=== PATIENT | female | born 1995 | race Caucasian/White ===

== ENCOUNTER 2019-01-18 12:07 | Outpatient (CLI) | payer MEDICAID ==
[~2019-01-18] VITALS: Ht 167.6 cm; Wt 89.5 kg
[2019-01-18 12:16] VITALS: Ht 167.6 cm; Wt 89.5 kg
--- NOTE | 2019-01-18 14:03 | PN ---
Triage Information Date/Time January 18, 2019 Reason for visit: Sent in from clinic for persistent tachycardia Weeks of Gestation 35 weeks and 6 days /Para 2 para 1 Hypertention: none Objective Heart Rate: 130's Heart Rate Comments Reactive Results/Medications Imaging Results Normal biophysical profile. Disposition: Discharge Assessment/Plan Home with follow-up for care LISA CORTES MD Jan 18, 2019 14:03
--- NOTE | 2019-01-18 14:54 | TRIAGE ---
OB Triage Datetime Report Generated by CPN: 01/18/2019 14:53 Datetime: 01/18/2019 13:55 Stage of : OB Triage Maternal Assessment Level of Consciousness: Fully Conscious DTR's/Clonus: DTRs 1+ Headache: Denies Nausea/Vomiting: Denies RUQ Epigastric Pain: Denies Labor Evaluation Monitor Mode: External Resting Tone Olin: Relaxed Heart Rate FHR Baseline Rate: 135 Monitor Mode: External US Variability: Moderate 6-25 bpm Accelerations: 15X15 Decelerations: None Pain Assessment Pain Scale: 0 Pain Presence: None/Denies Pain Type: N/A Pain Goal: 3 Vaginal Exam Membrane Status: Intact Datetime: 01/18/2019 13:42 Stage of : OB Triage Maternal Assessment Level of Consciousness: Fully Conscious DTR's/Clonus: DTRs 1+ Headache: Denies Nausea/Vomiting: Denies RUQ Epigastric Pain: Denies Labor Evaluation Monitor Mode: External Resting Tone Olin: Relaxed Heart Rate FHR Baseline Rate: 135 Monitor Mode: External US Variability: Moderate 6-25 bpm Accelerations: 15X15 Decelerations: None Category: Category I Pain Assessment Pain Scale: 0 Pain Presence: None/Denies Pain Type: N/A Pain Goal: 3 Vaginal Exam Membrane Status: Intact Datetime: 01/18/2019 12:53 Maternal Assessment Level of Consciousness: Fully Conscious DTR's/Clonus: DTRs 1+ Headache: Denies Blurred Vision: No Nausea/Vomiting: Denies RUQ Epigastric Pain: Denies Facial Edema: None Labor Evaluation Monitor Mode: External Resting Tone Olin: Relaxed Heart Rate FHR Baseline Rate: 135 Monitor Mode: External US Variability: Moderate 6-25 bpm Accelerations: 15X15 Decelerations: None Category: Category I Pain Assessment Pain Scale: 0 Pain Presence: None/Denies Pain Type: N/A Pain Goal: 3 Vaginal Exam Membrane Status: Intact Datetime: 01/18/2019 12:19 Assessment Type: Triage Maternal Assessment Level of Consciousness: Fully Conscious DTR's/Clonus: DTRs 2+; No Clonus Headache: Denies Blurred Vision: No Respiratory Effort: Unlabored; Regular Rhythm; Equal Expansion Breath Sounds, Left: Clear and Equal Breath Sounds, Right: Clear and Equal Nausea/Vomiting: Denies RUQ Epigastric Pain: Denies Lower Extremities Edema: None Degree: None Upper Extremities Edema: None Degree: None Facial Edema: None Fall Risk Assessment History of Falling: (0) No Secondary Diagnosis: (0) No Ambulatory Aid: (0) Bedrest/Nurse Assist IV Therapy: (0) No Gait: (0) Normal/Bedrest/Immobile Mental Status: (0) Oriented to Own Ability Fall Score: 0 Fall Risk Score Definition: No Risk: No action required Datetime: 01/18/2019 12:04 Time of Arrival: 01/18/2019 12:04 EGA: 35.4 Arrived By: Ambulatory Arrived From: Home Chief Complaint: PT CAME IN FROM CLINIC FOR TACHY Movement: Present Contractions: Denies/Absent Rupture of Membranes: Denies Vaginal Discharge: Denies Recent Sexual Intercouse: Denies Abdominal Trauma: Not Applicable Additional Patient Complaints: NONE Time Provider Notified: 01/18/2019 12:10 Provider Notified: JOE Initial Plan: [facility]
== END 2019-01-18 13:56 | disposition home or self-care (01) ==
LOC: L-D 12:07 → OBT 12:07
PROVIDERS: ATTEND Obstetrics & Gynecology
DX: O76 Abnormality in fetal heart rate and rhythm complicating labor and delivery (principal); Z3A.35 35 weeks gestation of pregnancy
CPT/HCPCS: 76818; Z7500; G0463

== ENCOUNTER 2019-01-24 23:57 | Inpatient (IN) | payer MEDICAID, OTHER ==
[~2019-01-24] VITALS: Ht 162.6 cm; Wt 91.4 kg
[2019-01-25 00:12] VITALS: BP 121/71; PULSE 77; RESP 16; Ht 162.6 cm; Wt 91.4 kg
[2019-01-25] MEDS ORDERED: PREN-93 PO (00:23)
[2019-01-25] MEDS ORDERED: FER325 PO (00:23)
[2019-01-25] MEDS ORDERED: CALC600T24 PO (00:23)
[2019-01-25] MEDS ORDERED: LACTATED RINGER'S 1,000 ML IV PRN (01:44)
[2019-01-25] MEDS ORDERED: OXYTOCIN 30 UNITS/LR 500 ML IV SCH (02:00)
[2019-01-25] MEDS ORDERED: OXYTOCIN 30 UNITS/LR 500 ML IV PRN (02:00)
[2019-01-25] MEDS ORDERED: MISOPROSTOL 200 MCG TAB PR PRN (02:00)
[2019-01-25] MEDS ORDERED: LIDOCAINE 1% (MPF) 30 ML INJ INJ PRN (02:00)
[2019-01-25] MEDS ORDERED: IBUPROFEN 600 MG TAB PO PRN (02:00)
[2019-01-25] MEDS ORDERED: AMPICILLIN 2 GM/NS (PMX) 100 ML IV ONE (02:00)
[2019-01-25] MEDS ORDERED: CARBOPROST 250 MCG INJ IM PRN (02:00)
[2019-01-25] MEDS ORDERED: BUTORPHANOL 2 MG INJ IV PRN (02:00)
[2019-01-25] MEDS ORDERED: METHYLERGONOVINE 0.2 MG INJ IM PRN (02:00)
[2019-01-25] MEDS: LACTATED RINGER'S 1,000 ML IV SCH ×4 (02:12→23:00)
--- NOTE | 2019-01-25 02:38 | TRIAGE ---
OB Triage Datetime Report Generated by CPN: 01/25/2019 02:38 Datetime: 01/25/2019 02:22 Labor Evaluation Frequency: 2-5 Monitor Mode: External Duration (sec)2399: 60-140 Pattern: Normal: <= 5 Contractions in 10 Minutes Heart Rate FHR Baseline Rate: 145 Monitor Mode: External US Variability: Moderate 6-25 bpm Accelerations: 15X15 Decelerations: None Datetime: 01/25/2019 02:00 Labor Evaluation Frequency: 1.5-6 Monitor Mode: External Duration (sec)2399: 60-150 Pattern: Normal: <= 5 Contractions in 10 Minutes Heart Rate FHR Baseline Rate: 145 Monitor Mode: External US Variability: Moderate 6-25 bpm Accelerations: 15X15 Decelerations: None Category: Category I Datetime: 01/25/2019 01:20 Pain Assessment Comments: pt states she is feeling more uc's Nitrazine: Positive Datetime: 01/25/2019 01:00 Labor Evaluation Frequency: 2-6.5 Monitor Mode: External Duration (sec)2399: 40-150 Pattern: Normal: <= 5 Contractions in 10 Minutes Heart Rate FHR Baseline Rate: 145 Monitor Mode: External US Variability: Moderate 6-25 bpm Accelerations: 15X15 Decelerations: None Datetime: 01/25/2019 00:15 Assessment Type: Triage Maternal Assessment Level of Consciousness: Fully Conscious DTR's/Clonus: DTRs 2+; No Clonus Headache: Denies Blurred Vision: No Respiratory Effort: Unlabored; Regular Rhythm; Equal Expansion Breath Sounds, Left: Clear and Equal Breath Sounds, Right: Clear and Equal Nausea/Vomiting: Denies RUQ Epigastric Pain: Denies Lower Extremities Edema: Bilateral Lower Extremities Degree: 1+ Upper Extremities Edema: None Degree: None Facial Edema: None Fall Risk Assessment History of Falling: (0) No Secondary Diagnosis: (0) No Ambulatory Aid: (0) Bedrest/Nurse Assist IV Therapy: (0) No Gait: (0) Normal/Bedrest/Immobile Mental Status: (0) Oriented to Own Ability Fall Score: 0 Fall Risk Score Definition: No Risk: No action required Pain Assessment Pain Scale: 3 Pain Presence: Intermittent Pain Type: Contraction Pain Location: Abdomen Pain Goal: 2 Pain Relief Measures: Comfort Measures Vaginal Exam Dilatation (cms): 0.0 Effacement (%): 0 Station: -3 Membranes Rupture Method: Spontaneous Amniotic Fluid Color: Clear Nitrazine: Positive Cervix, Position: Posterior Datetime: 01/25/2019 00:10 Monitor Mode: External Monitor Mode: External US Comments: MONITORS APPLIED. AUDIBLE HEART TONES Datetime: 01/25/2019 00:07 EGA: 36.3 Arrived By: Wheelchair Arrived From: Other Unit in Hospital Datetime: 01/24/2019 23:53 Time of Arrival: 01/24/2019 23:50 EGA: 36.3 Arrived By: Wheelchair Arrived From: Home Chief Complaint: ABDOMINAL PAIN Movement: Present Contractions: Irregular Time Contractions Began: 01/25/2019 00:00 Rupture of Membranes: Ruptured Vaginal Bleeding: Normal Show Vaginal Discharge: Present Recent Sexual Intercouse: Denies Abdominal Trauma: Not Applicable Patient Complaints: Contractions Time Provider Notified: 01/25/2019 01:42 Provider Notified: JOE Initial Plan: CEFM, SVE, NITRAZINE, ROM+ Datetime: 01/18/2019 12:19 Fall Score: 0 Fall Risk Score Definition: No Risk: No action required Datetime: 01/18/2019 12:04 EGA: 35.4
[2019-01-25] MEDS: AMPICILLIN 1 GM/NS (PMX) 50 ML IV SCH ×5 (06:44→22:18)
--- NOTE | 2019-01-25 16:58 | HP ---
Date/Time of Note Date/Time of Note DATE: 01/25/19 TIME: 16:52 OB - History Hx of Present Free Text/Dictation 23-year-old female 2 para 0 at 36 weeks and 5 days gestation admitted complaining of rupture of membranes feel as prior to admission Patient had a similar complaint a few days prior to admission Last Menstrual Period: May 14, 2018 Estimated Due Date: Feb 18, 2019 : 2 Para: 0 Spontaneous : 1 Past Family/Social History * Past Medical, Surgical, Family and Obstetric Histories reviewed from chart. Blood Type: O+ Rubella: immune RPR/VDRL: Negative GBS Status: Unknown HBsAG: Negative OB Admission Exam Vital Signs Vital Signs Vital Signs Date Temp Pulse Resp B/P (MAP) Pulse Ox O2 O2 Flow FiO2 Time Delivery Rate 01/25/19 98.3 77 16 121/71 Room Air 00:12 (88) Physical Exam HEENT: WNL Heart: Rhythm Normal Lungs: Clear, Equal Abdomen: WNL Extremities: Normal Reflexes: Normal Cervical Dilatation: Fingertip Effacement: 25% Station: -3 Membranes: Ruptured (Questionable) Amniotic Fluid: Unevaluable Heart Rate: 140's Decelerations: No Decelerations Varibility: Marked Contractions on Admission: >10 Minutes Apart Last 72 hours Lab Results CBC & BMP 01/25/19 02:15 OB Assessment/Plan Reason for admission: rupture of membranes Other Assessment: Possible spontaneous rupture of membrane at 36 weeks and 3 4 days Other plan: Consider induction and delivery Patient had negative ROM plus test on admission noticed to have drip of liquid down her legs which remain nitrazine positive On his second try ROM plus test was positive Will proceed with augmentation and or induction of labor LISA CORTES MD Jan 25, 2019 16:58
[2019-01-25] MEDS ORDERED: BETAMET NA PHOS/AC(6 MG/ML) 2 ML INJ SYG IM ONE (17:30)
[2019-01-25] MEDS: MISOPROSTOL 50 MCG CAPSULE PO SCH ×2 (18:53→23:00)
--- NOTE | 2019-01-25 22:36 | PREAC ---
Date/Time of Note Date/Time of Note DATE: 01/25/19 TIME: 22:35 Anesthesia Eval and Record Evaluation Time Pre-Procedure Interview DATE: 01/25/19 TIME: 22:35 Age 23 Sex female NPO: 8 hrs Preoperative diagnosis iup at 37 weeks Planned procedure labor epidural Past Medical History Past Medical History: Includes GI: Obesity Surgery & Anesthesia Issues No known issue Meds Anticoagulation: No Beta Todd within 24 hr: No Reason Beta Todd not given: Pt. not on B-Todd Reported Medications Calcium Carbonate* (Calcium Carbonate*) 600 MG Ca Tab, 600 MG PO, TAB 01/25/19 Ferrous Sulfate* (Ferrous Sulfate*) 325 Mg Tabec, 325 MG PO DAILY, TAB 01/25/19 Vit No.124/Iron/FA ( Vitamin Tablet) 1 Each Tablet, 1 EACH PO, TAB 01/25/19 Current Medications Lactated Ringer's 1,000 ml @ 125 mls/hr Q8H IV Last administered on 01/25/19at 15:13; Admin Dose 125 MLS/HR; Start 01/25/19 at 01:44 Ampicillin 50 ml @ 100 mls/hr Q4H IV Last administered on 01/25/19at 22:18; Admin Dose 100 MLS/HR; Start 01/25/19 at 06:00 Butorphanol Tartrate (Stadol) 2 mg Q2H PRN IV .PAIN Last administered on 01/25/19at 20:22; Admin Dose 2 MG; Start 01/25/19 at 02:00 Lidocaine (Xylocaine 1% (Mpf)) 30 ml ONCE PRN INJ .EPISIOTOMY; Start 01/25/19 at 02:00 Oxytocin/Lactated Ringer's 500 ml @ 500 mls/hr ONCE POST IV ; Start 01/25/19 at 02:00 Oxytocin/Lactated Ringer's 500 ml @ 125 mls/hr POST IV ; Start 01/25/19 at 02:00 Ibuprofen (Motrin) 600 mg ONCE PRN PO .PAIN 1-5; Start 01/25/19 at 02:00 Lactated Ringer's 1,000 ml @ 2,000 mls/hr Q30M PRN IV .ANESTHESIA; Start 01/25/19 at 01:44 Oxytocin/Lactated Ringer's 500 ml @ 0 mls/hr ONCE PRN IV .VAGINAL BLEEDING; Start 01/25/19 at 02:00 Methylergonovine Maleate (Methergine) 0.2 mg ONCE PRN IM .VAGINAL BLEEDING; Start 01/25/19 at 02:00 Carboprost Tromethamine (Hemabate) 250 mcg ONCE PRN IM .VAGINAL BLEEDING; Start 01/25/19 at 02:00 Misoprostol (Cytotec) 1,000 mcg ONCE PRN LA .VAGINAL BLEEDING; Start 01/25/19 at 02:00 Misoprostol (Cytotec 50 Mcg Capsule) 50 mcg Q4H PO Last administered on 01/25/19at 18:53; Admin Dose 50 MCG; Start 01/25/19 at 19:00; Stop 01/26/19 at 15:01 Meds reviewed: Yes Allergies Coded Allergies: No Known Allergy (Unverified , 01/18/19) Allergies Reviewed: Yes Labs/Studies Labs Reviewed: Reviewed by anesthesiologist Result Diagram: 01/25/19 0215 Laboratory Tests 01/25/19 02:15 Blood Bank Test 01/25/19 02:15 Antibody Screen NEGATIVE Blood Type O POSITIVE Rh Immune Globulin Candidate NO test: Positive Pre-procedure Exam Last vitals Vital Signs Date Temp Pulse Resp B/P (MAP) Pulse Ox O2 O2 Flow FiO2 Time Delivery Rate 01/25/19 98.3 77 16 121/71 Room Air 00:12 (88) Airway: Adequate mouth opening, Adequate thyromental dist Mallampati: Mallampati I Teeth: Normal Lung: Normal Heart: Normal ASA Physical Status ASA physical status: 2 Emergency: None Planned Anesthetic Neuraxial: Epidural Planned Pain Management Parenteral pain med Pre-operative Attestations Prior to commencing anesthesia and surgery, the patient was re-evaluated, there was verification of: *The patient's identity *The results of appropriate recent lab work and preoperative vital signs *The above evaluation not changing prior to induction *Anesthetic plan, risk benefits, alternative and complications discussed with p atient/family; questions answered; patient/family understands, accepts and wishes to proceed. MASON ZAPIEN Jan 25, 2019 22:36
[2019-01-25] MEDS ORDERED: FENTAnyl 2MCG/ML-ROPIV 0.2% 100 ML ONE (22:40)
[2019-01-25] MEDS ORDERED: NALOXONE (0.4 MG/ML) INJ IV PRN (23:00)
[2019-01-25] MEDS ORDERED: FENTAnyl 2MCG/ML-ROPIV 0.2% 100 ML BAG EPI SCH (23:00)
[2019-01-25] MEDS ORDERED: ONDANSETRON 4 MG INJ IV PRN (23:00)
[2019-01-25] MEDS ORDERED: DIPHENHYDRAMINE 50 MG INJ IV PRN (23:00)
[2019-01-26] MEDS: AMPICILLIN 1 GM/NS (PMX) 50 ML IV SCH ×2 (02:23→06:00)
[2019-01-26] MEDS: MISOPROSTOL 50 MCG CAPSULE PO SCH (03:00)
[2019-01-26] MEDS: LACTATED RINGER'S 1,000 ML IV SCH (04:09)
[2019-01-26] MEDS: OXYTOCIN 30 UNITS/LR 500 ML IV SCH ×3 (06:47→10:21)
[2019-01-26] MEDS ORDERED: METHYLERGONOVINE 0.2 MG INJ ONE (07:00)
--- NOTE | 2019-01-26 07:17 | LDN ---
Date/Time of Note Date/Time of Note DATE: 01/26/19 TIME: 07:13 Delivery Summary 23 years old 1 with single intrauterine at 36 weeks and 5 days delivered viable male over median episiotomy. Nose and mouth suctioned. Rest of body delivered. Cord clamped and cut after stopping pulsation. Placenta delivered spontaneously and intact with three-vessel cord. Episiotomy repaired with 2-0 Vicryl. Patient tolerated procedure well. Time of delivery 05:06 Weight 9 pounds 8 at 1 minutes and 9 at 5 minutes EBL 450 mL Pitocin and 400 mcg Cytotec p.o. and 400 mcg Cytotec rectally given Weeks of Gestation 36 weeks and 5 days Placenta Delivered: Spontaneously Meconium: none Episiotomy: Yes (Median) Indication for episiotomy Facilitate vaginal delivery Anesthesia type: Epidural Estimated blood loss: 450 Sponge & Needle done & correct: Yes All needle counts correct: Yes Any foreign bodies felt in the: No Infant Delivery Information Sex Sex: male Apgars 1 Minute: 8 5 Minute: 9 10 Minute: 10 Suctioning Nose & mouth suctioned at alanna: Yes Umbilical Cord Umbilical cord with: 3 Vessels Cord Blood was obtained: Yes Mother & Baby Disposition Disposition Mom & Baby to Maternity; Good: Yes FER PENN Jan 26, 2019 07:17
--- NOTE | 2019-01-26 08:22 | PAC ---
Date/Time of Note Date/Time of Note DATE: 01/26/19 TIME: 08:22 Post-Anesthesia Notes Post-Anesthesia Note Last documented vital signs Vital Signs Date Temp Pulse Resp B/P (MAP) Pulse Ox O2 O2 Flow FiO2 Time Delivery Rate 01/25/19 98.3 77 16 121/71 Room Air 0810 (88) Activity: WNL Respiratory function: WNL Cardiovascular function: WNL Mental status: Baseline Pain reasonably controlled: Yes Hydration appropriate: Yes Nausea/Vomiting absent: Yes MASON ZAPIEN Jan 26, 2019 08:22
[2019-01-26 12:00] VITALS: BP 109/55; PULSE 97; RESP 16
[2019-01-26] MEDS ORDERED: DEXTROSE 5%-LR 1,000 ML IV SCH (12:03)
[2019-01-26] MEDS ORDERED: DIPHENHYDRAMINE 50 MG INJ IV PRN (12:30)
[2019-01-26] MEDS ORDERED: WITCH HAZEL/GLYCERIN PAD PR PRN (12:30)
[2019-01-26] MEDS ORDERED: ONDANSETRON 4 MG INJ IV PRN (12:30)
[2019-01-26] MEDS ORDERED: ZOLPIDEM 5 MG TAB PO PRN (12:30)
[2019-01-26] MEDS ORDERED: DIBUCAINE 1% 30 GM OINT TOP PRN (12:30)
[2019-01-26] MEDS ORDERED: OXYCODONE/ASPIRIN (4.88/325) TAB PO PRN (12:30)
[2019-01-26] MEDS ORDERED: LANOLIN HPA 1 PKT TOP PRN (12:30)
[2019-01-26] MEDS ORDERED: SENNA/DOCUSATE NA (8.6MG/50MG) TAB PO PRN (12:30)
[2019-01-26] MEDS ORDERED: ACETAMINOPHEN 325 MG TAB PO PRN (12:30)
[2019-01-26] MEDS ORDERED: CARBOPROST 250 MCG INJ IM PRN (12:30)
[2019-01-26] MEDS ORDERED: MISOPROSTOL 200 MCG TAB PR PRN (12:30)
[2019-01-26] MEDS ORDERED: BENZOCAINE 20% 56 ML SPRAY TOP PRN (12:30)
[2019-01-26] MEDS ORDERED: OXYTOCIN 30 UNITS/LR 500 ML IV PRN (12:30)
[2019-01-26] MEDS ORDERED: METHYLERGONOVINE 0.2 MG INJ IM PRN (12:30)
[2019-01-26] MEDS: LACTATED RINGER'S 1,000 ML IV* SCH ×2 (13:26→14:10)
[2019-01-26] MEDS: IBUPROFEN 600 MG TAB PO SCH ×3 (13:28→23:40)
[2019-01-26 16:00] VITALS: BP 109/57; PULSE 101; RESP 16
[2019-01-26] MEDS: CEPHALEXIN 500 MG CAP PO SCH ×3 (16:06→23:40)
[2019-01-26 20:00] VITALS: BP 106/64; PULSE 68; RESP 20
[2019-01-27] MEDS: LACTATED RINGER'S 1,000 ML IV* SCH ×2 (04:03→12:03)
[2019-01-27 05:01] VITALS: BP 109/60; PULSE 74; RESP 20
[2019-01-27] MEDS: CEPHALEXIN 500 MG CAP PO SCH ×3 (05:26→17:29)
[2019-01-27] MEDS: IBUPROFEN 600 MG TAB PO SCH ×3 (05:26→17:28)
[2019-01-27 08:15] VITALS: BP 110/58; PULSE 92; RESP 18
--- NOTE | 2019-01-27 14:33 | DS ---
Date/Time of Note Date/Time of Note Home today or next day DATE: 01/27/19 TIME: 14:32 Obstetrical Discharge Record Final Diagnosis Final Diagnosis: delivered Other Final Diagnosis spontaneous rupture of membranes 36+ weeks gestation Vaginal Delivery Obstetrical Delivery: Spontaneous, Episiotomy, Repaired Complications Labor, Other ( spontaneous rupture of membrane) Augmentation: Yes Induction: Yes Condition on Discharge Physical Assessment Voiding: Yes Bowel Movement: Yes Breast: Soft, non-tender, Filling Fundus: Firm Abdomen and Incision: Abdomen is soft with firm fundus Episiotomy: Healing well Perineum is clean Calf Tenderness: No Patient Condition: Good LISA CORTES MD Jan 27, 2019 14:33
--- NOTE | 2019-01-27 14:35 | PD.PPDC ---
TOUR GUIDE Discharge Instruction Provider Information Physician Information 23-year-old female had vaginal delivery Diagnosis [id number] Final Diagnosis: [id number] Status post vaginal delivery Condition [id number] Patient Condition: [id number] Good Diet [id number] Diet: Gfdxz0y Resume Regular Diet Activity/Restrictions [id number] Activity: [id number] Normal Activity May Shower [id number] Restrictions: [id number] Nothing in the Vagina [id number] Return to Work or School: [id number] March 14, 2019 Follow-up Follow-up with Physician: 2, Week/Weeks (In clinic) Return to clinic for [id number] OB Instructions: [id number] Breast Tenderness Depression Comment: Pelvic rest for 6 weeks LISA CORTES MD Jan 27, 2019 14:35
[2019-01-27] MEDS ORDERED: IBUP-1542 PO (14:36)
[2019-01-27 19:45] VITALS: BP 101/56; PULSE 94; RESP 18
[2019-01-28] MEDS: IBUPROFEN 600 MG TAB PO SCH ×3 (00:37→11:43)
[2019-01-28] MEDS: CEPHALEXIN 500 MG CAP PO SCH ×3 (00:37→11:43)
[2019-01-28 04:18] VITALS: BP 99/64; PULSE 73; RESP 18
[2019-01-28 08:15] VITALS: BP 116/63; PULSE 76; RESP 18
[2019-01-28] MEDS ORDERED: MEASLES,MUMPS,RUBELLA VACCINE INJ SC* ONE (09:00)
[2019-01-28] MEDS ORDERED: DIPHTH/TET/ACEL PERTUSS (ADULT) 0.5 ML VIAL IM* ONE (09:00)
[2019-01-28 16:00] VITALS: BP 113/60; PULSE 77; RESP 18
== END 2019-01-28 16:41 | disposition home or self-care (01) | DRG 807 ==
LOC: L-D 23:57 → OBT 23:57 → L-D 01-25 01:42 → MS1 01-26 11:31
PROVIDERS: ADMIT Obstetrics & Gynecology; ATTEND Obstetrics & Gynecology
PROC: 10E0XZZ Delivery of Products of Conception, External Approach (ICD-10-PCS; principal; 2019-01-26)
PROC: 0W8NXZZ Division of Female Perineum, External Approach (ICD-10-PCS; 2019-01-26)
PROC: 3E033VJ Introduction of Other Hormone into Peripheral Vein, Percutaneous Approach (ICD-10-PCS; 2019-01-26)
DX: O60.13X0 Preterm labor second trimester with preterm delivery third trimester, not applicable or unspecified (principal); Z37.0 Single live birth; Z3A.36 36 weeks gestation of pregnancy
CPT/HCPCS: 76816; 76818; 81001; 84112; 85025; 85610; 85730; 86592; 86850; 86900; 86901; 87340; 90715; G0463; J0290; J0595; J0702; J2210; J2405; J2590; J3010; J7120; J7121